=== PATIENT | female | born 1950 | race Caucasian/White ===

== ENCOUNTER 2016-09-06 09:32 | Emergency (ER) | payer MEDICARE ==
[2016-09-06] MEDS ORDERED: Ondansetron INJ* 2 MG/ML VIAL IV ONE (09:46)
--- NOTE | 2016-09-06 10:07 | ED ---
GI/ HPI - HPI Summary HPI Summary: 66F w/ PMH of lyme and depression presents with n/v/d and lower abdominal pain. Pain is greatest in LLQ. She states that her diarrhea was bloody and full of mucous this morning. She states the blood is bright red blood. She is unsure if she had bloody stool last night. She vomited once. She denies any fevers. She denies any dark tarry stools. She states she has had multiple episodes of the diarrhea. She states she has only vomited once. She does not have a history of GI bleed. Her last colonoscopy was 5 years ago. She denies any recent antibiotic use. She denies any vaginal bleeding or discharge, dysuria, or hematuria. She has never had these symptoms before. She states that she doesn't drink her well water but it is containment with E coli. She denies any one else being sick. She denies any lightheadedness - History of Current Complaint Chief Complaint: EDNauseaVomitDiarrh Time Seen by Provider: 09/06/16 09:46 Stated Complaint: BLOOD IN STOOL Pain Intensity: 2 - Allergy/Home Medications Allergies/Adverse Reactions: Allergies Allergy/AdvReac Type Severity Reaction Status Date / Time Levofloxacin [From Levaquin] Allergy Altered Verified 09/06/16 09:32 Mental Status PMH/Surg Hx/FS Hx/Imm Hx Endocrine/Hematology History: Denies: Hx Anticoagulant Therapy, Hx Diabetes Cardiovascular History: Denies: Hx Hypertension Musculoskeletal History: Reports: Hx Arthritis - lyme Psychiatric History: Reports: Hx Depression Infectious Disease History: No Infectious Disease History: Denies: Traveled Outside the [place] in Last 30 Days - Family History Known Family History: Positive: Other - no history of colon CA - Social History Alcohol Use: Daily Alcohol Amount: glass wine/day Substance Use Type: Reports: Marijuana Substance Use Comment - Amount & Last Used: daily use Smoking Status (MU): Former Smoker Review of Systems Negative: Fever Negative: Chest Pain Negative: Shortness Of Breath Positive: Abdominal Pain - lower quadrants, Vomiting, Diarrhea, Nausea All Other Systems Reviewed And Are Negative: Yes Physical Exam Triage Information Reviewed: Yes Vital Signs On Initial Exam: Initial Vitals Temp Pulse Resp BP Pulse Ox 97.3 F 73 18 162/79 99 09/06/16 09:32 09/06/16 09:32 09/06/16 09:32 09/06/16 09:32 09/06/16 09:32 Vital Signs Reviewed: Yes Appearance: Positive: Well-Appearing Skin: Positive: Warm, Dry Head/Face: Positive: Normal Head/Face Inspection Eyes: Positive: Normal, Conjunctiva Clear ENT: Positive: Normal ENT inspection, Pharynx normal, TMs normal Respiratory/Lung Sounds: Positive: Clear to Auscultation, Breath Sounds Present Cardiovascular: Positive: Normal, RRR Abdomen Description: Positive: Soft, Other: - mild tenderness in RLQ and LLQ, no hemorrhoid or fistula noted on rectal exam. Negative: Distended, Guarding Bowel Sounds: Positive: Present - Melissa Coma Scale Coma Scale Total: 15 Diagnostics - Vital Signs Vital Signs Temp Pulse Resp BP Pulse Ox 09/06/16 09:32 97.3 F 73 18 162/79 99 - Laboratory Result Diagrams: 09/06/16 10:03 09/06/16 10:03 Lab Statement: Any lab studies that have been ordered have been reviewed, and results considered in the medical decision making process. - CT ab CT Interpretation: Positive (See Comments) - IMPRESSION: 1. THICKENING OF THE WALL OF THE DESCENDING COLON CONSISTENT WITH COLITIS. DIFFERENTIAL DIAGNOSIS WOULD INCLUDE INFECTIOUS, INFLAMMATORY AND LESS LIKELY ISCHEMIC COLITIS. RECOMMEND CLINICAL CORRELATION. 2. HEPATIC STEATOSIS. CT Interpretation Completed By: Radiologist Re-Evaluation - Re-Evaluation First Eval Re-Evaluation Time: 13:00 Change: Unchanged Comment: pain is 2/10 and does not want anything for her pain GIGU Course/Dx - Course Course Of Treatment: 66F presents with n/v/d and lower quandrant abdominal pain. she states that the diarrhea has been bloody and full of mucus. She denies any fevers or recent antibiotic usage. Her tenderness is greatest in LLQ so will get CT to r/o diverticulitis. stool occult blood negative. wbc 15. CT: colitis, discussed with dr bustillo and will treat with cipro and flagyl and have follow up with GI, patient was unable to give us a stool sample but is already being treated for infectious colitis, told to follow up with PC about bp , patient understands and agrees with plan - Diagnoses Differential Diagnoses - Female: Appendicitis, Diverticulitis, Diarrhea Provider Diagnoses: Colitis, Diarrhea Discharge - Discharge Plan Condition: Good Disposition: HOME Prescriptions: Ciprofloxacin TAB* [Cipro 500 MG TAB*] 500 mg PO BID #27 tab Metronidazole [Flagyl 500 MG TAB] 500 mg PO BID #27 tab Patient Education Materials: Infectious Colitis (ED) Referrals: Lamar Nascimento MD [Primary Care Provider] - Chava Hillman MD [Medical Doctor] - Additional Instructions: Take Flagyl twice a day for 14 days, unable to drink with this medication, first dose given in ED Take ciprofloxacin twice a day for 14 days, first dose given in ED Drink fluids as tolerate Can take Zofran every 6 hours as needed for nausea When able to eat follow BRAT diet: Bananas, rice, applesauce, toast Take Tylenol for pain as needed every 6 hours Follow up with primary within 7 days Follow up with GI if no improvement Return to ED if develop fever that does not respond to Tylenol or ibuprofen, severe abdominal pain, or any new or worsening symptoms
[2016-09-06 10:34] LABS: Hematocrit 46 % (35-47); Hemoglobin 14.9 g/dl (12.0-16.0); Mean Corpuscular HGB Conc 33 g/dl (31-36); Mean Corpuscular Hemoglobin 30 pg (27-31); Mean Corpuscular Volume 92 fL (80-97); Mean Platelet Volume 8 um3 (7.4-10.4); Red Blood Count 4.96 10^6/ul (4.0-5.4); Red Cell Distribution Width 14 % (10.5-15)
[2016-09-06 10:46] LABS: BUN/Creatinine Ratio 17.2 (8-20); Calcium 9.6 mg/dL (8.6-10.3); EGFR African American 77.3 (>60); EGFR Non-African American 60.1 (>60); Potassium 3.8 mmol/L (3.5-5.0); Total Bilirubin 0.5 mg/dL (0.2-1.0)
[2016-09-06] MEDS: NS 0.9% 1000 ML* 2,000 ML IV ONE (11:12)
[2016-09-06 11:37] LABS: Urine Bacteria Absent (Absent); Urine Bilirubin Negative (Negative); Urine Glucose Negative (Negative); Urine Nitrite Negative (Negative)
[2016-09-06] MEDS ORDERED: Iohexol 300* (CONTRAST) 10 ML SDV IV ONE (11:43)
--- NOTE | 2016-09-06 13:36 | RAD ---
INDICATION: Left lower quadrant pain and diarrhea. COMPARISON: There are no prior studies available for comparison. TECHNIQUE: A CT scan of the abdomen and pelvis was performed with intravenous and oral contrast following intravenous injection of 93 ml of Omnipaque 300 nonionic contrast. Contiguous axial sections were obtained from the lung bases through the symphysis pubis. Images were reconstructed in the coronal and sagittal planes. FINDINGS: There is mild dependent bilateral lower lobe subsegmental atelectasis. No pleural effusion is present. The liver and spleen are normal in size. The liver is decreased in attenuation consistent with fatty infiltration. In addition there is a small 0.3 cm hypodense lesion in the posterior segment of the right hepatic lobe which is too small to characterize by CT although likely represents a small cyst. No calcified gallstones are seen. The pancreas is normal in size. No ductal distention or focal abnormality is seen. The kidneys and adrenal glands are normal in size. No hydronephrosis is seen. No significant focal renal abnormality is seen. The aorta is normal in caliber with mild calcific plaque present. The celiac, superior and inferior mesenteric arteries appear patent without evidence for hemodynamically significant stenosis. No significant enlarged retroperitoneal lymph nodes are seen. The stomach, small and large bowel appear nondistended. The appendix is within normal limits. There is circumferential thickening of the wall of the descending colon with mild stranding in the adjacent mesenteric fat most consistent with colitis. The uterus is retroverted. No free intraperitoneal air or fluid is seen. No significant focal osseous abnormality is seen. IMPRESSION: 1. THICKENING OF THE WALL OF THE DESCENDING COLON CONSISTENT WITH COLITIS. DIFFERENTIAL DIAGNOSIS WOULD INCLUDE INFECTIOUS, INFLAMMATORY AND LESS LIKELY ISCHEMIC COLITIS. RECOMMEND CLINICAL CORRELATION. 2. HEPATIC STEATOSIS.
[2016-09-06] MEDS ORDERED: Ciprofloxacin TAB* 500 MG PO ONE (13:50)
[2016-09-06] MEDS ORDERED: metroNIDAZOLE TAB* 250 MG PO ONE (13:51)
[2016-09-06 18:31] VITALS: BP 176/79
== END 2016-09-06 18:29 | disposition home or self-care (01) ==
LOC: ED 09:32
DX: K52.9 Noninfective gastroenteritis and colitis, unspecified (principal); R10.32 Left lower quadrant pain; R11.2 Nausea with vomiting, unspecified; R19.7 Diarrhea, unspecified; Z87.891 Personal history of nicotine dependence
CPT/HCPCS: 36415; 74177; 80053; 81003; 81015; 82272; 83690; 85025; 86141; 99283; A9270-GY; Q9967

== ENCOUNTER 2017-07-08 08:59 | Day surgery (SDC) | payer MEDICARE ==
--- NOTE | 2017-06-24 06:45 | HP ---
CC: Dr. Lamar Nascimento * ADMISSION HISTORY AND PHYSICAL: DATE OF ADMISSION: 07/08/17 ATTENDING SURGEON: Dr. Eric Mendiola * (DICTATED BY KEE PFEIFFER) CHIEF COMPLAINT: Cecal polyp. HISTORY OF PRESENT ILLNESS: This is a generally healthy 66-year-old female, who underwent routine screening colonoscopy on 12/18/[address] Leslie. Her history was notable for longstanding daily morning diarrhea and vomiting for many years, which has mostly resolved, though she still reports at least 2 loose watery stools every morning. She reports always having "digestive issues. " She had undergone prior colonoscopies in 2001 and 2011, both showing thickened cecal folds near the appendiceal orifice. Previous biopsies were benign. She has also had 2 episodes of bloody stool within the past year, but not in the past 6 months. At the time of her most recent colonoscopy on , she was again found to have thickened folds within the cecum and biopsies were consistent with sessile serrated adenomatous polyp (SSA). Dr. Leslie also noted that passage of scope was fairly difficult and he suspects some degree of right colon malrotation. The patient does not describe any new or recent change in her baseline symptoms. She specifically denies abdominal pain , change in stools, bloating, melena, or bright red stool per rectum in the recent months. Again, this is in addition to her usual baseline symptoms as noted above. She met with Dr. Mendiola today, who felt that resection was warranted of this cecal polyp. The patient understands the appendix will be removed in the process and the surgery will be performed laparoscopically on a same- day surgery basis. She would like to proceed as scheduled with laparoscopic resection of cecal polyp with appendectomy. PAST MEDICAL HISTORY: She states that she has had multiple episodes of Lyme disease and believes that she has some chronic sequelae including at times severe exhaustion, difficulty concentrating, and memory problems. She also reports multiple chemical sensitivities, history of depression, and arthritis. PAST SURGICAL HISTORY: Include reconstruction after facial injury from a dog bite in 2008, dental extractions, and excision of a basal cell carcinoma of the right upper back (she is followed by business continuity specialist annually). CURRENT MEDICATIONS: Include: 1. Probiotic and enzyme supplements. 2. She also takes melatonin 3 mg one-half tablet q.h.s. 3. She also uses an estrogen cream topically applied to her arms q. day (she uses this for mood problems). DRUG ALLERGIES: None. The patient prefers not to use Levaquin (though she herself has not had any problems related to same). FAMILY HISTORY: Negative for anesthesia problems, bleeding or clotting disorder. SOCIAL HISTORY: The patient lives alone, though she does have supportive friends and neighbors. She is a former smoker between 1 or 2 packs per day for 30 years. She quit 20 years ago. She does drink between 1 and 2 glasses of wine 3 to 4 times weekly and she smokes marijuana each evening. No other illicit drug use reported. REVIEW OF SYSTEMS: General: No recent constitutional symptoms or acute illnesses other than described in the HPI. She does report a 30- to 35-pound weight loss but largely intentional and related to dietary changes. She maintains good appetite and states that weight loss has leveled off. Cardiovascular: No chest pain, palpitations, history of heart murmur. She does report a slow heart rate from previous exams. No episodes of syncope or near syncope. Respiratory: No chronic cough or shortness of breath. Smoking history as noted. GI: She no longer has the daily episodes of vomiting, though still does have an occasion, maybe once a month or so of vomiting. She has not had any upper GI workup. Lower GI per the HPI. : No problems reported in terms of dysuria, increased frequency, or hematuria. MOVIE ACTOR: We did not inquire. Endocrine: No diabetes or thyroid dysfunction. PHYSICAL EXAMINATION GENERAL: Well-nourished, well-developed female, in no acute distress. VITAL SIGNS: Height 66 inches, weight 155 pounds, blood pressure 126/78, pulse 60, respirations 18, temperature 98.9. HEENT: Pupils equal, round, and reactive. EOMs intact. No conjunctival pallor. Oropharynx: Teeth in good repair. No intraoral lesions. NECK: No lymphadenopathy in the cervical or supraclavicular regions. No thyromegaly. LUNGS: Clear to auscultation. No rales or wheezes. BREASTS: Not examined. HEART: Regular rate and rhythm. No murmur appreciated. ABDOMEN: Soft, nontender to palpation. No palpable masses or organomegaly. GENITALIA AND RECTAL: Not done. BACK: No spinous process or CVA tenderness. EXTREMITIES: No edema. NEUROLOGICAL: Grossly intact. SKIN: Warm and dry. No suspicious rashes or lesions noted. There is a well- healed scar on her right upper back from prior basal cell excision. Full skin survey was not performed, however. IMPRESSION: Cecal polyp. PLAN: Laparoscopic excision of cecal polyp with appendectomy. KEE PFEIFFER [id number]/[facility] #: [id number] TIFFANY
[~2017-07-08 08:59] MED LIST: Buffered Lidocaine 0.9% SYRIN* 5 ML/SYR SYRINGE INTRADERM ONE; Sodium Citrate/Citric Acid* 15 ML UDC PO ONE
[2017-07-08] MEDS ORDERED: Sodium Citrate/Citric Acid* 15 ML UDC ONE (09:39)
[2017-07-08] MEDS ORDERED: ceFOXitin 2 GM IVPREMIX* 2 GM/50 ML BAG ONE (09:40)
[2017-07-08] MEDS ORDERED: Buffered Lidocaine 0.9% SYRIN* 5 ML/SYR SYRINGE ONE (09:40)
[2017-07-08] MEDS ORDERED: Bupivacaine 0.25% SDV* 30 ML ONE (12:03)
[2017-07-08] MEDS ORDERED: fentaNYL* 50 MCG/ML 2 ML VIAL (100 MCG VIAL) IV PRN (12:19)
[2017-07-08] MEDS ORDERED: Ondansetron INJ* 2 MG/ML VIAL IV PRN (12:19)
[2017-07-08] MEDS ORDERED: Naloxone* 0.4 MG/ML 1 ML VIAL IV PRN (12:19)
[2017-07-08] MEDS ORDERED: Lidocaine 2% PF * 5 ML VIAL ONE (12:32)
[2017-07-08] MEDS ORDERED: Propofol* 10 MG/ML 20 ML BTL IV PUSH ONE (12:32)
[2017-07-08] MEDS ORDERED: Cisatracurium* 2 MG/ML MDV 5 ML ONE (12:34)
[2017-07-08] MEDS ORDERED: fentaNYL* 50 MCG/ML 2 ML VIAL (100 MCG VIAL) ONE (12:34)
[2017-07-08] MEDS ORDERED: Desflurane* 240 ML INH ONE (14:01)
[2017-07-08] MEDS ORDERED: Labetalol IV* 5 MG/ML 20 ML VIAL ONE (14:01)
[2017-07-08] MEDS ORDERED: Neostigmine Methylsulfate* 2 MG/2 ML SYRINGE ONE (14:04)
[2017-07-08] MEDS ORDERED: Glycopyrrolate IV* 0.2 MG/ML 1 ML VIAL ONE (14:04)
[2017-07-08] MEDS ORDERED: oxyCODONE/Acetamin 5/325 MG* TAB PO PRN (14:23)
[2017-07-08] MEDS ORDERED: Ondansetron INJ* 2 MG/ML VIAL ONE (14:30)
[2017-07-08] MEDS ORDERED: oxyCODONE/Acetamin 5/325 MG* TAB ONE (15:20)
[2017-07-08 15:41] VITALS: BP 128/55
--- NOTE | 2017-07-09 11:22 | OP ---
CC: Lamar Nascimento MD; Chava Hillman MD * DATE OF OPERATION: 07/08/17 - [facility] DATE OF : 48 SURGEON: Eric Mendiola MD [employer]: KEE Giraldo ANESTHESIOLOGIST: Osbaldo Barnes DO ANESTHESIA: General endotracheal. PRE-OP DIAGNOSIS: Cecal polyp. POST-OP DIAGNOSIS: Cecal polyp. OPERATIVE PROCEDURE: Laparoscopic appendectomy and partial cecal resection. ESTIMATED BLOOD LOSS: Minimal. IV FLUIDS: Crystalloid. SPECIMENS: Appendix, portion of cecum. DRAINS: None. COMPLICATIONS: None. COUNTS: The instrument, needle, and sponge counts were correct. DESCRIPTION OF PROCEDURE: The patient was brought to the operating room placed on the table supine. Sequential compression devices were placed on both lower extremities. General anesthesia was administered. Hernandez catheter was placed. She received appropriate intravenous antibiotics. She was prepped and draped in usual sterile fashion. A time-out was performed. Local anesthetic was infiltrated into the skin and soft tissue prior to making each incision. Entry to the abdomen was through a transumbilical vertical incision using an open technique. After accessing the peritoneal cavity, a 12- mm trocar was placed and carbon dioxide was insufflated to a pressure of 15 mmHg. Under direct visualization, 5-mm trocars were placed in the suprapubic midline and in the left lower quadrant. Inspection of the cecum revealed extensive tattooing over the cecal cap. The appendix was identified and mobilization proceeded with dividing attachments to the cecum to the abdominal wall laterally using combination of sharp dissection and cautery. The appendix was in a retrocolic position, tapering down to a very thin structure that extended up behind the ascending colon. This was dissected out using combination of sharp and blunt dissection and once this was freed, the mesentery of the appendix was divided and the appendix was then able to be used as a retractor for manipulating the cecum. The tattooed wall of the cecum was partially obscured by the lateral fat on the cecum and this was dissected free with a LigaSure. Once the dissection was completed, inspection revealed that the proposed area of resection was well away from the ileocecal valve. The Endo CHLOE stapler with purple cartridges was used to divide the cecum encompassing the entire area of tattooing and this was subsequently removed using an endoscopic retrieval bag and opened on the back table. The finding was protruding polypoid mass from the appendiceal orifice and a sessile polyp that was consistent with the colonoscopic images that had been previously reviewed. The specimen was then submitted to Pathology in formalin. We returned to the abdominal cavity and cavity inspection revealed the staple lines to be intact and hemostasis was excellent. At this point, the ports were removed under direct visualization. The carbon dioxide was released. The umbilical wound was closed with 0 Vicryl in figure-of-8 fashion and then the skin incisions were closed with 4-0 Monocryl in subcuticular fashion. Steri- Strips were applied. The patient tolerated the procedure well. She was extubated, awakened, and transferred to recovery room in stable condition. [id number]/[facility] #: [id number] TIFFANY
== END 2017-07-08 15:55 | disposition home or self-care (01) ==
LOC: OR 08:59
PROVIDERS: ATTEND Surgery
DX: D12.0 Benign neoplasm of cecum (principal); Z87.891 Personal history of nicotine dependence; R53.83 Other fatigue; F06.8 Other specified mental disorders due to known physiological condition; B94.8 Sequelae of other specified infectious and parasitic diseases
CPT/HCPCS: 36415; 86803; 88309; A9270-GY; C1776; J0694; J2405; J2704; J3010